=== PATIENT | female | born 1965 | race Caucasian/White ===

== ENCOUNTER 2016-06-24 22:36 | Emergency (ER) | payer OTHER ==
[2016-06-24 23:44] VITALS: RESP 18
[2016-06-24 23:58] LABS: Basophils # (A) 0.1 k/uL (0-0.2); Basophils % (A) 2 %; CHCM 34.3; Eosinophils # (A) 0.2 k/uL (0-0.7); Eosinophils % (A) 3 %; HCT 41.4 % (34.0-46.0); HDW 2.65; HGB 14.1 gm/dL (11.4-16.0); Luc # (Auto) 0.12; Luc % (Auto) 2; Lymphocytes # (A) 2.3 k/uL (1.0-4.8); Lymphocytes % (A) 32 %; MCH 28.9 pg (25.0-35.0); MCV 84.8 fL (80.0-100.0); Mean Platelet Volume 7.4; Monocytes # (A) 0.6 k/uL (0-1.0); Monocytes % (A) 8 %; Neutrophils # (A) 3.8 k/uL (1.3-7.7); Neutrophils % (A) 54 %; RBC 4.88 m/uL (3.80-5.40); RDW 13.3 % (11.5-15.5); WBC 7.1 k/uL (3.8-10.6); WBC (Perox) 6.91
[2016-06-25 00:07] LABS: ALT 33 U/L (9-52); AST 21 U/L (14-36); Alkaline Phosphatase 53 U/L (38-126); Anion Gap 12 mmol/L; Blood Urea Nitrogen 11 mg/dL (7-17); Calcium 9.4 mg/dL (8.4-10.2); Carbon Dioxide 24 mmol/L (22-30); Chloride 103 mmol/L (98-107); Glucose 105 mg/dL (74-99); Magnesium 1.8 mg/dL (1.6-2.3); Non-African American GFR(MDRD) >60 (>60 ml/min/1.73 sqM); Potassium 4.1 mmol/L (3.5-5.1); Sodium 139 mmol/L (137-145); Total Bilirubin 0.6 mg/dL (0.2-1.3); Total Protein 6.9 g/dL (6.3-8.2)
[2016-06-25 00:13] LABS: Partial Thromboplastin Time 23.7 sec (22.0-30.0); Prothrombin Time 10.5 sec (9.0-12.0)
--- NOTE | 2016-06-25 00:19 | XR ---
EXAMINATION TYPE: XR chest 2V DATE OF EXAM: 06/25/2016 12:14 AM COMPARISON: 10/22/2014 HISTORY: Chest pain TECHNIQUE: Frontal and lateral views of the chest are obtained. FINDINGS: Heart and mediastinum are normal. Lungs are clear. Diaphragm is normal. Bony thorax is int act. IMPRESSION: Normal chest. No change.
--- NOTE | 2016-06-25 00:32 | ED ---
General Adult HPI - General Chief complaint: Extremity Injury, Upper Stated complaint: arm pain Time Seen by Provider: 06/24/16 23:45 Source: patient, RN notes reviewed, old records reviewed Mode of arrival: wheelchair Limitations: no limitations - History of Present Illness Initial comments: This is a 51-year-old female here for evaluation. Patient presents today for evaluation of shoulder pain and pain pain to right back. Has not had prior history of similar issues before. Patient has history of high blood pressure, diabetes, obesity.. Patient's pain has been going on for a week with no modifying factors. No recent travel history no sick contacts no cough congestion or shortness of breath - Related Data Home Medications Medication Instructions Recorded Confirmed Escitalopram [Lexapro] 10 mg PO DAILY 10/22/14 06/24/16 Albuterol Inhaler [Ventolin Hfa 1 - 2 puff INHALATION RT-Q6H PRN 06/24/16 Inhaler] amLODIPine [Norvasc] 5 mg PO DAILY 06/24/16 06/24/16 metFORMIN HCL 1,000 mg PO BID 06/24/16 06/24/16 Allergies Allergy/AdvReac Type Severity Reaction Status Date / Time latex AdvReac Rash/Hives Verified 06/24/16 23:05 Review of Systems ROS Statement: Those systems with pertinent positive or pertinent negative responses have been documented in the HPI. ROS Other: All systems not noted in ROS Statement are negative. Past Medical History Past Medical History: No Reported History History of Any Multi-Drug Resistant Organisms: None Reported Additional Past Surgical History / Comment(s): ovarian cyst sx, D & C Past Psychological History: Anxiety Smoking Status: Never smoker Past Alcohol Use History: None Reported Past Drug Use History: None Reported General Exam Limitations: no limitations General appearance: alert, in no apparent distress Head exam: Present: atraumatic, normocephalic, normal inspection Eye exam: Present: normal appearance, PERRL, EOMI. Absent: scleral icterus, conjunctival injection, periorbital swelling ENT exam: Present: normal exam, mucous membranes moist Neck exam: Present: normal inspection. Absent: tenderness, meningismus, lymphadenopathy Respiratory exam: Present: normal lung sounds bilaterally. Absent: respiratory distress, wheezes, rales, rhonchi, stridor Cardiovascular Exam: Present: regular rate, normal rhythm, normal heart sounds. Absent: systolic murmur, diastolic murmur, rubs, gallop, clicks GI/Abdominal exam: Present: soft, normal bowel sounds. Absent: distended, tenderness, guarding, rebound, rigid Extremities exam: Present: normal inspection, full ROM, normal capillary refill. Absent: tenderness, pedal edema, joint swelling, calf tenderness Back exam: Present: normal inspection Neurological exam: Present: alert, oriented X3, CN II-XII intact Psychiatric exam: Present: normal affect, normal mood Skin exam: Present: warm, dry, intact, normal color. Absent: rash Course Vital Signs 06/24/16 06/24/16 06/25/16 22:38 23:43 00:59 Temperature 98.9 F Pulse Rate 84 72 75 Respiratory 20 18 18 Rate Blood Pressure 161/93 135/79 145/79 O2 Sat by Pulse 98 97 98 Oximetry - Reevaluation(s) Reevaluation #1: 06/25/16 00:30 Patient is without significant chest pain, no anterior crushing heaviness, no shortness of breath or diaphoresis EKG Findings - EKG Comments: EKG Findings:: EKG shows normal sinus rhythm of 74, WV 1:30, QRS 78, QTC 444 Medical Decision Making - Medical Decision Making 51 female to ER History of the ER for evaluation. Patient presents for evaluation of shoulder pain. Shoulder pain in nature is worse with movement, worse with pain at pressing her trapezius. No shortness of breath, although patient does admit eating overweight she does get short of breath easily, no diaphoresis and these episodes. No is continuing down arm, no trauma. Chest x- rays negative EKG and troponin are negative, patient discussed at length greater than 15 minutes of questions answered regarding need for further testing for cardiac risk, patient does have increased cardiac risk including diabetes and high blood pressure. Patient understands her history and her risk factors, will follow up with primary care for heart disease and stress test - Lab Data Result diagrams: 06/24/16 23:35 06/24/16 23:35 Lab Results 06/24/16 06/24/16 06/24/16 Range/Units 23:35 23:35 23:35 WBC 7.1 (3.8-10.6) k/uL RBC 4.88 (3.80-5.40) m/uL Hgb 14.1 (11.4-16.0) gm/dL Hct 41.4 (34.0-46.0) % MCV 84.8 (80.0-100.0) fL MCH 28.9 (25.0-35.0) pg MCHC 34.0 (31.0-37.0) g/dL RDW 13.3 (11.5-15.5) % Plt Count 282 (150-450) k/uL Neutrophils % 54 % Lymphocytes % 32 % Monocytes % 8 % Eosinophils % 3 % Basophils % 2 % Neutrophils # 3.8 (1.3-7.7) k/uL Lymphocytes # 2.3 (1.0-4.8) k/uL Monocytes # 0.6 (0-1.0) k/uL Eosinophils # 0.2 (0-0.7) k/uL Basophils # 0.1 (0-0.2) k/uL PT (9.0-12.0) sec INR (<1.1) APTT (22.0-30.0) sec D-Dimer (<0.60) mg/L FEU Sodium 139 (137-145) mmol/L Potassium 4.1 (3.5-5.1) mmol/L Chloride 103 (98-107) mmol/L Carbon Dioxide 24 (22-30) mmol/L Anion Gap 12 mmol/L BUN 11 (7-17) mg/dL Creatinine 0.64 (0.52-1.04) mg/dL Est GFR (MDRD) Af Amer >60 (>60 ml/min/1.73 sqM) Est GFR (MDRD) Non-Af >60 (>60 ml/min/1.73 sqM) Glucose 105 H (74-99) mg/dL Calcium 9.4 (8.4-10.2) mg/dL Magnesium 1.8 (1.6-2.3) mg/dL Total Bilirubin 0.6 (0.2-1.3) mg/dL AST 21 (14-36) U/L ALT 33 (9-52) U/L Alkaline Phosphatase 53 (38-126) U/L Total Creatine Kinase 88 (30-135) U/L CK-MB (CK-2) 0.8 (0.0-2.4) ng/mL CK-MB (CK-2) Rel Index 0.9 Troponin I <0.012 (0.000-0.034) ng/mL Total Protein 6.9 (6.3-8.2) g/dL Albumin 4.1 (3.5-5.0) g/dL Lipase 105 (23-300) U/L 06/24/16 Range/Units 23:35 WBC (3.8-10.6) k/uL RBC (3.80-5.40) m/uL Hgb (11.4-16.0) gm/dL Hct (34.0-46.0) % MCV (80.0-100.0) fL MCH (25.0-35.0) pg MCHC (31.0-37.0) g/dL RDW (11.5-15.5) % Plt Count (150-450) k/uL Neutrophils % % Lymphocytes % % Monocytes % % Eosinophils % % Basophils % % Neutrophils # (1.3-7.7) k/uL Lymphocytes # (1.0-4.8) k/uL Monocytes # (0-1.0) k/uL Eosinophils # (0-0.7) k/uL Basophils # (0-0.2) k/uL PT 10.5 (9.0-12.0) sec INR 1.0 (<1.1) APTT 23.7 (22.0-30.0) sec D-Dimer 0.21 (<0.60) mg/L FEU Sodium (137-145) mmol/L Potassium (3.5-5.1) mmol/L Chloride (98-107) mmol/L Carbon Dioxide (22-30) mmol/L Anion Gap mmol/L BUN (7-17) mg/dL Creatinine (0.52-1.04) mg/dL Est GFR (MDRD) Af Amer (>60 ml/min/1.73 sqM) Est GFR (MDRD) Non-Af (>60 ml/min/1.73 sqM) Glucose (74-99) mg/dL Calcium (8.4-10.2) mg/dL Magnesium (1.6-2.3) mg/dL Total Bilirubin (0.2-1.3) mg/dL AST (14-36) U/L ALT (9-52) U/L Alkaline Phosphatase (38-126) U/L Total Creatine Kinase (30-135) U/L CK-MB (CK-2) (0.0-2.4) ng/mL CK-MB (CK-2) Rel Index Troponin I (0.000-0.034) ng/mL Total Protein (6.3-8.2) g/dL Albumin (3.5-5.0) g/dL Lipase (23-300) U/L - Radiology Data Radiology results: report reviewed (Chest x-ray two-view is negative for acute disease), image reviewed Disposition Clinical Impression: Left shoulder pain Disposition: HOME SELF-CARE Condition: Good Instructions: Shoulder Pain (ED) Referrals: Melinda Leonard III, MD [Primary Care Provider] - 1-2 days
[2016-06-25 00:33] LABS: Creatine Kinase 88 U/L (30-135)
[2016-06-25 00:46] LABS: Creatine Kinase MB 0.8 ng/mL (0.0-2.4); Troponin I <0.012 ng/mL (0.000-0.034)
[2016-06-25 01:20] VITALS: BP 137/77; PULSE 80; TEMP 97.7
== END 2016-06-25 01:20 | disposition home or self-care (01) ==
LOC: EC 22:36
DX: M25.512 Pain in left shoulder (principal); E11.9 Type 2 diabetes mellitus without complications; I10 Essential (primary) hypertension; F41.9 Anxiety disorder, unspecified; E66.9 Obesity, unspecified; Z91.040 Latex allergy status; Z79.84 Long term (current) use of oral hypoglycemic drugs; Z79.899 Other long term (current) drug therapy
CPT/HCPCS: 36415; 71020; 80053; 82550; 82553; 83690; 83735; 84484; 85025; 85379; 85610; 85730; 93005; 99284

== ENCOUNTER → 2016-07-11 | Outpatient (CLI) | payer OTHER ==
--- NOTE | 2016-07-11 12:16 | EST ---
DATE OF SERVICE: 07/11/2016 AGE: 51Y SEX: F HT: 72 WT: 355 lbs. Protocol Nick: X Other: Stage: II Dur. of Exercise: 4:09 *Heart Rate Blood Pressure *Rest: 91 Rest: 145/93 * *Max. Achieved: 148 Maximum BP: 178/89 85% PMHR: 145 100% PMHR: 171 *METS: 5.4 INDICATIONS: Chest pain, hypertension. MEDICATIONS: Mrs. Nixon is a 51-year-old female with history of hypercholesterolemia, hypertension and diabetes being evaluated for symptoms of chest pain and shortness of breath. Baseline EKG showed sinus rhythm with normal WV interval and QRS duration. Blood pressure at rest is 145/93 with pulse rate of 91. Patient walked on the Nick protocol for 4 minutes and 9 seconds, achieving a maximum heart rate of 148 with a blood pressure of 178/89. EKGs taken during and after the exercise did not reveal any changes to suggest ischemia. This test was stopped because patient became fatigued and reached 86% of predicted heart rate. FINAL IMPRESSION: 1. Low exercise capacity. 2. Negative stress test. 3. Patient did not experience any chest pain. 4. No arrhythmias were detected.
--- NOTE | 2016-07-14 10:00 | MM ---
Reason for exam: screening (asymptomatic). History: Patient had first child at age 33. Physical Findings: A clinical breast exam by your physician is recommended on an annual basis and results should be correlated with mammographic findings. MG Screening Mammo w CAD Bilateral CC and MLO view(s) were taken. The breast tissue is heterogeneously dense. This may lower the sensitivity of mammography. There is no discrete abnormality. No significant changes when compared with prior studies. ASSESSMENT: Negative, BI-RAD 1 RECOMMENDATION: Routine screening mammogram of both breasts in 1 year.
== END | disposition home or self-care (01) ==
LOC: RADMAMWWP 09:45
PROVIDERS: ATTEND Family Medicine
DX: Z12.31 Encounter for screening mammogram for malignant neoplasm of breast (principal); I10 Essential (primary) hypertension; E11.9 Type 2 diabetes mellitus without complications
CPT/HCPCS: 93017; G0202

== ENCOUNTER 2018-03-07 15:49 | Observation (INO) | payer OTHER ==
[2018-03-07] MEDS ORDERED: HYDROcodone/APAP 7.5-325MG 1 EACH TAB PO ONE (16:28)
--- NOTE | 2018-03-07 17:00 | XR ---
EXAMINATION TYPE: XR knee complete RT DATE OF EXAM: 03/07/2018 COMPARISON: NONE HISTORY: 52-year-old female pain after twisting injury TECHNIQUE: 3 views FINDINGS: Tricompartmental degenerative spurring. Fragmentation at the tibial tuberosity possibly sequela of ol d Alsen-Schlatter's disease. Intercondylar spurring is noted in the medial compartment. No significa nt knee joint effusion. No acute fracture, subluxation, or dislocation seen. IMPRESSION: Tricompartmental osteoarthrosis. No knee joint effusion or acute osseous abnormality seen.
[2018-03-07] MEDS ORDERED: MORPHINE SULFATE 4 MG/ML SYRINGE IVP STA (17:37)
[2018-03-07] MEDS ORDERED: RX INFO: IV CONTRAST WAS GIVEN 1 EACH MISC MISCELLANE PRN (17:44)
[2018-03-07 18:59] LABS: Blood Urea Nitrogen 11 mg/dL (7-17)
[2018-03-07] MEDS ORDERED: SODIUM CHLORIDE 0.9% 1,000 ML IV ONE (19:37)
--- NOTE | 2018-03-07 20:02 | ED ---
Lower Extremity Injury HPI - General Chief Complaint: Extremity Injury, Lower Stated Complaint: right knee pain Time Seen by Provider: 03/07/18 16:00 Source: patient Mode of arrival: ambulatory Limitations: no limitations - History of Present Illness Initial Comments: This a 52-year-old female past medical history of hypertension diabetes and extensive OA of the knees b/l who presents today for chief complaint of right knee pain. Patient states that she was walking in her yard, when she stepped into a hole dug by her dog. Patient states that she twisted her right knee. She is unsure if there was dislocation. Patient stated that she was able to slowly ambulate to the house following the injury, however the pain was so severe it made her feel as though she was going to pass out. Denies falling hitting her head or injury to any other extremity. Patient denies numbness, tingling, loss sensation of the right knee. Patient denies ability to range at the right knee secondary to pain. Patient denies a coolness or color changes of the right lower extremity. Patient denies any recent fever, chills, shortness of breath, chest pain, back pain, abdominal pain, nausea or vomiting, numbness or tingling, dysuria or hematuria, constipation or diarrhea, headaches or visual changes, or any other complaints. - Related Data Home Medications Medication Instructions Recorded Confirmed Escitalopram [Lexapro] 10 mg PO DAILY 10/22/14 06/24/16 Albuterol Inhaler [Ventolin Hfa 1 - 2 puff INHALATION RT-Q6H PRN 06/24/16 Inhaler] amLODIPine [Norvasc] 5 mg PO DAILY 06/24/16 06/24/16 metFORMIN HCL 1,000 mg PO BID 06/24/16 06/24/16 Allergies Allergy/AdvReac Type Severity Reaction Status Date / Time latex AdvReac Rash/Hives Verified 03/07/18 15:53 Review of Systems ROS Statement: Those systems with pertinent positive or pertinent negative responses have been documented in the HPI. ROS Other: All systems not noted in ROS Statement are negative. Constitutional: Denies: fever, chills Eyes: Denies: eye pain Respiratory: Denies: cough, dyspnea, wheezes, hemoptysis, stridor Cardiovascular: Denies: chest pain, palpitations, dyspnea on exertion Gastrointestinal: Denies: abdominal pain, nausea, vomiting, diarrhea, constipation Genitourinary: Denies: urgency, dysuria Musculoskeletal: Reports: joint swelling, arthralgia. Denies: back pain Skin: Denies: rash, lesions Neurological: Reports: abnormal gait (inability to ambulate). Denies: headache , numbness, paresthesias, confusion Past Medical History Past Medical History: Diabetes Mellitus, Hypertension History of Any Multi-Drug Resistant Organisms: None Reported Additional Past Surgical History / Comment(s): ovarian cyst sx, D & C Past Psychological History: Anxiety Smoking Status: Never smoker Past Alcohol Use History: None Reported Past Drug Use History: None Reported General Exam - General Exam Comments Initial Comments: General: The patient is awake and alert, in no distress, and does not appear acutely ill. Eye: Pupils are equal, round extra-ocular movements are intact. No nystagmus. There is normal conjunctiva bilaterally. No signs of icterus. Ears, nose, mouth and throat: There are moist mucous membranes and no oral lesions. Cardiovascular: There is a regular rate and rhythm. No murmur, rub or gallop is appreciated. Respiratory: Lungs are clear to auscultation, respirations are non-labored, breath sounds are equal. No wheezes, stridor, rales, or rhonchi. Musculoskeletal: Pt unable to active or passively range at the right knee due to pain, no popliteal fossa tenderness. Unable to assess muscle strength testing of the right knee. Pt is able to full range the feet fully with dorsiflexion and plantar flexion, strength 5/5. No evidence of foot drop. Sensation intact of the LE equally b/l. LE pink, warm to palpation equally b/l. DP pulses unequal to palpation +1 on right, +2 on the left. Capillary refill < 2seconds equally b/l. Compartment are soft and compressible of the LE equally b/ l. No noted laxity with anterior or posterior drawer testing-special testing was limited due to patient pain/compliance. Neurological: A&O x 3. CN II-XII intact, There are no obvious motor or sensory deficits. Coordination appears grossly intact. Speech is normal. Skin: Skin is warm and dry and no rashes or lesions are noted. Psychiatric: Cooperative, appropriate mood & affect, normal judgment. Limitations: no limitations Course Vital Signs 0903/07/18 03/07/18 15:51 19:46 21:24 Temperature 97.8 F 97.8 F Pulse Rate 81 85 69 Respiratory 18 18 18 Rate Blood Pressure 136/91 143/84 146/80 O2 Sat by Pulse 97 98 97 Oximetry Medical Decision Making - Medical Decision Making 52yo with cc of right knee concerning for possible dislocation v ligamentous injury. Physical exam limited secondary to pain however no noted laxity.Pt given norco for pain mgmt XR revealed no dislocation or fracture, however severe tricompartmental osteoarthritis. There was a palpable difference in pulses the right DP felt slightly diminished in comparison with the left. Dr. Lang attempted bedside U/S however given pt obesity exam was limited. . Due to possible pulse discrepancy and pt was unsure of dislocation, CTA was obtained. No evidence of aneursym, dissection or injury to the right popliteal artery. I called Dr. Grissom the radiologist reading to confirm the evaluation of the popliteal artery he stated that the vessel was WNL there were no suspicious findings of the popliteal artery and he stated that he had good views of artery on CT. Given no hx confirming definite dislocation, no high mechanism of trauma and (-) CT findings we feel popliteal artery injury in not likely. During CT pt was given double the dose of contrast and pt was given 1,000ml bolus following study. Case discussed with Dr. Lang who evaluated pt in person prior to work up. At this time we feel given pt weight, intractable pain with movement-pt denies pain at rest, bilateral osteoarthritis we feel admission in observation for orthopedic evaluation, PT evaluation, and possible case management. Pt given standing order for pain mgmt, glucose monitoring, DVT ppx, nausea and maintenance fluids. Basic labs obtained, heparin DVT ppx was withheld until plt results from CBC, plt WNL heparin SQ started q8h. Pt transferred to floor in stable condition. - Lab Data Result diagrams: 03/07/18 18:20 Lab Results 03/07/18 Range/Units 18:20 BUN 11 (7-17) mg/dL Creatinine 0.75 (0.52-1.04) mg/dL Est GFR (CKD-EPI)AfAm >90 (>60 ml/min/1.73 sqM) Est GFR (CKD-EPI)NonAf >90 (>60 ml/min/1.73 sqM) Disposition Clinical Impression: Osteoarthritis of knees, bilateral, Knee pain, bilateral, Right knee injury, Inability to ambulate due to knee Disposition: ADMITTED IP TO THIS [facility] Condition: Stable Time of Disposition: 21:36 Decision to Admit Reason: Admit from EC Decision Date: 03/07/18 Decision Time: 21:36
--- NOTE | 2018-03-07 20:24 | CT ---
EXAMINATION TYPE: CT angio lower extremity RT DATE OF EXAM: 03/07/2018 COMPARISON: Radiographs right knee same day HISTORY: 52-year-old female Right knee pain, twisting injury to right knee. Patient reports that she needs bilateral knee replacements. TECHNIQUE: Contiguous axial scanning of the pelvis with bilateral lower extremity runoff performed wi IV Contrast, patient injected with a total of 200 mL of Isovue 370. The initial 100 mL injection d id not trigger appropriately. The patient was reinjected with another 100 mL of contrast. Coronal/sag ittal MIP reconstructions performed. 3-D reconstructions generated on a dedicated independent worksta Endosee. CT DLP: 3356.6 mGycm Automated exposure control for dose reduction was used. FINDINGS: Small fatty umbilical hernia. No dilated small bowel, free fluid, or free air. There is a rounded structure located behind the bladder that seems to have fluid attenuation measurin g up 8.5 x 6.9 cm. Correlation will be needed as to the patient has had prior hysterectomy. Left ovar y appears to be visualized. No pelvic lymphadenopathy seen. The visualized lower abdominal aorta is normal caliber and patent. The right iliac arteries appear pa tent. The right common and superficial femoral arteries as well as the popliteal artery are patent. Normal takeoff of the anterior tibial artery and patent tibial peroneal trunk. The 3 vessels of the leg show progressively faint enhancement likely due to the skin outlining the co ntrast bolus. The peroneal artery is seen down to the mid leg level. Anterior tibial artery is faintl y seen to the ankle. There is at least single vessel runoff into the foot via the posterior tibial ar mark. Degenerative joint space narrowing in the patellofemoral compartment and additional subchondral cysti c change and degenerative change at the proximal tibiofibular joint. No knee joint effusion. On the left, the iliac arteries are patent as is the common femoral and superficial femoral artery. The popliteal artery is patient as well as are the proximal trifurcation vessels. There is progressiv allison diminishing enhancement of the trifurcation vessels likely due to scanning out running the contra st bolus. The peroneal artery is seen to the lower third leg level and both anterior and posterior ti bial arteries are faintly seen to the ankle. Degenerative changes in the patellofemoral compartment with marginal spurring in the medial compartme nt. No knee joint effusion. IMPRESSION: 1. ROUNDED 8.5 CM STRUCTURE LOCATED BEHIND THE BLADDER MAY HAVE FLUID ATTENUATION. THIS REPRESENT THE UTERUS IF THERE IS NO PRIOR HISTORY OF HYSTERECTOMY. IF THERE HAS BEEN PRIOR HYSTERECTOMY, A CYSTIC OVARIAN LESION IS IN THE DIFFERENTIAL. PELVIC ULTRASOUND CLINICALLY INDICATED. 2. PROGRESSIVELY DIMINISHING ENHANCEMENT OF THE BILATERAL TRIFURCATION VESSELS AT THE MID LEG LEVEL L IKELY DUE TO THE SCAN OUTRUNNING THE CONTRAST BOLUS. NO SIGNIFICANT ATHEROSCLEROTIC CHANGES ARE IDENT IFIED. ON THE LEFT, THERE IS AT LEAST SINGLE VESSEL RUNOFF VIA THE POSTERIOR TIBIAL ARTERY WITH THE A NTERIOR TIBIAL ARTERY SEEN TO THE ANKLE. ON THE RIGHT, THERE IS AT LEAST TWO-VESSEL RUNOFF. NO ARTERI AL OCCLUSION IS SUSPECTED. 3. DEGENERATIVE CHANGES AT BOTH KNEES.
[2018-03-07] MEDS ORDERED: ONDANSETRON 4 MG/2 ML VIAL IVP PRN (21:16)
[2018-03-07] MEDS ORDERED: NALOXONE 0.4 MG/ML 1 ML VIAL IV PRN (21:16)
[2018-03-07] MEDS ORDERED: MORPHINE SULFATE 2 MG/ML SYRINGE IV PRN (21:16)
[2018-03-07] MEDS ORDERED: IBUPROFEN 400 MG TAB PO PRN (21:16)
[2018-03-07] MEDS ORDERED: ACETAMINOPHEN TAB 325 MG TAB PO PRN (21:16)
[2018-03-07 21:41] LABS: Basophils # (A) 0.1 k/uL (0-0.2); Basophils % (A) 1 %; Eosinophils # (A) 0.1 k/uL (0-0.7); Eosinophils % (A) 1 %; HCT 47.2 % (34.0-46.0); HGB 15.8 gm/dL (11.4-16.0); Lymphocytes # (A) 1.8 k/uL (1.0-4.8); Lymphocytes % (A) 20 %; MCH 27.8 pg (25.0-35.0); MCHC 33.4 g/dL (31.0-37.0); MCV 83.3 fL (80.0-100.0); Mean Platelet Volume 7.8; Monocytes # (A) 0.6 k/uL (0-1.0); Monocytes % (A) 7 %; Neutrophils # (A) 6.2 k/uL (1.3-7.7); Neutrophils % (A) 70 %; Platelet Count 330 k/uL (150-450); RBC 5.67 m/uL (3.80-5.40); RDW 13.7 % (11.5-15.5); WBC 8.9 k/uL (3.8-10.6)
[2018-03-07 21:45] LABS: ALT 22 U/L (9-52); AST 21 U/L (14-36); Alkaline Phosphatase 51 U/L (38-126); Anion Gap 13 mmol/L; Calcium 9.6 mg/dL (8.4-10.2); Carbon Dioxide 20 mmol/L (22-30); Chloride 105 mmol/L (98-107); Glucose 126 mg/dL (74-99); Potassium 4.4 mmol/L (3.5-5.1); Sodium 138 mmol/L (137-145); Total Bilirubin 0.4 mg/dL (0.2-1.3); Total Protein 7.1 g/dL (6.3-8.2)
[2018-03-07 21:46] LABS: INR 1.1 (<1.2); Prothrombin Time 10.7 sec (9.0-12.0)
[2018-03-07 22:11] LABS: Glucose,Whole Blood 133 mg/dL (75-99)
[2018-03-07 22:41] VITALS: BMI 50.2
[2018-03-07] MEDS: SODIUM CHLORIDE 0.9% 1,000 ML IV SCH (22:55)
[2018-03-07] MEDS: HYDROcodone/APAP 5-325MG 1 EACH TAB PO PRN (23:35)
[2018-03-07] MEDS: HEPARIN SODIUM,PORCINE 5,000 UNIT/ML 1 ML VIAL SQ SCH (23:36)
[2018-03-08] MEDS: HYDROcodone/APAP 5-325MG 1 EACH TAB PO PRN ×3 (04:52→22:51)
[2018-03-08 07:37] LABS: Glucose,Whole Blood 128 mg/dL (75-99)
[2018-03-08] MEDS: HEPARIN SODIUM,PORCINE 5,000 UNIT/ML 1 ML VIAL SQ SCH ×3 (08:11→23:27)
[2018-03-08] MEDS: INSULIN ASPART 100 UNIT/ML 1 ML 10 ML VIAL SQ SCH ×4 (08:17→21:42)
[2018-03-08] MEDS ORDERED: SPIRONOLACTONE 25 MG TAB PO SCH (09:00)
[2018-03-08] MEDS ORDERED: EMPAGLIFLOZIN PO SCH (09:00)
[2018-03-08] MEDS ORDERED: ESCITALOPRAM 10 MG TAB PO SCH (09:00)
[2018-03-08] MEDS ORDERED: amLODIPine 5 MG TAB PO SCH (09:00)
[2018-03-08] MEDS ORDERED: JANUMET PO SCH (09:00)
[2018-03-08] MEDS ORDERED: LINAGLIPTIN 5 MG TABLET PO SCH (09:00)
[2018-03-08] MEDS: JARDIANCE 10MG PO SCH (09:41)
[2018-03-08] MEDS: SPIRONOLACTONE 25 MG TAB PO SCH (09:42)
[2018-03-08] MEDS: amLODIPine 5 MG TAB PO SCH (09:43)
[2018-03-08] MEDS: ESCITALOPRAM 10 MG TAB PO SCH (09:43)
[2018-03-08] MEDS: SODIUM CHLORIDE 0.9% 1,000 ML IV SCH (09:45)
[2018-03-08 11:45] LABS: Glucose,Whole Blood 115 mg/dL (75-99)
--- NOTE | 2018-03-08 14:17 | P.HPIM ---
History of Present Illness H&P Date: 03/08/18 Chief Complaint: Right knee pain Patient is a 52-year-old female with a known history of hypertension, diabetes type 2 [id number] and osteoarthritis of the bilateral knees came to ER or come with complaints of worsening right knee pain. Patient states that C stepdown to a hole dug by her dog. Patient has been having right knee issues for several years. Patient wants to wait until her case go to college therefore go for any surgery. Patient did have a arthroscopy done about [address] Lambert and was told that she has osteoarthritis. She was able to ambulate slowly at home but currently the pain is so severe and was not to ambulate which made her to come to emergency room. Otherwise denied any complaints of chest pain or shortness of breath. No nausea vomiting or abdominal pain. Denied any lower extremities weakness. No numbness or tingling. No recent travel or sick contacts. No headache or dizziness lightheadedness. No dysuria or hematuria. No constipation. Right knee x-ray showed tricompartmental osteoarthrosis. No joint effusion or acute osseous abnormalities seen. CTA of the lower extremities showed rounded 8.5 cm located behind the bladder may have fluid attenuation. This represents the uterus. There is no prior history of hysterectomy. If there has been prior history of hysterectomy is cystic ovarian lesion is in the differential. Awake ultrasound as clinically indicated. Progressively diminishing enhancement of the bilateral trifurcation vessel at the mid leg level likely due to the scan out RUNNING THE CONTRAST BOLUS. Degenerative changes at both knees. Review of Systems Constitutional: Patient denies any fever or chills . No generalized weakness or weight loss. Abdomen: Patient denied nausea vomiting and diarrhea and abdominal pain. Cardiovascular: Patient denies any chest pain or short of breath no palpitations. Respiratory: patient denied any cough is from production. No shortness of breath Neurologic: Patient denied any numbness or tingling headache. Musculoskeletal: Patient denies any complaints of joint swelling or deformity. Right knee pain and decreased range of motion and difficulty walking Skin: Negative Psychiatric: Negative Endocrine: No heat or cold intolerance. No recent weight gain. Genitourinary: No dysuria or hematuria. All other 14 point ROS negative except the above Past Medical History Past Medical History: Diabetes Mellitus, Hypertension History of Any Multi-Drug Resistant Organisms: None Reported Additional Past Surgical History / Comment(s): ovarian cyst sx, D & C Past Anesthesia/Blood Transfusion Reactions: No Reported Reaction Past Psychological History: Anxiety Smoking Status: Never smoker Past Alcohol Use History: None Reported Past Drug Use History: None Reported - Past Family History Mother Family Medical History: Coronary Artery Disease (CAD), Diabetes Mellitus, Hypertension Father Family Medical History: Coronary Artery Disease (CAD), Diabetes Mellitus, Renal Disease Brother(s) Family Medical History: CVA/TIA Medications and Allergies Home Medications Medication Instructions Recorded Confirmed Type Escitalopram [Lexapro] 10 mg PO DAILY 10/22/14 03/08/18 History amLODIPine [Norvasc] 5 mg PO DAILY 06/24/16 03/08/18 History Empagliflozin [Jardiance] 10 mg PO DAILY 03/08/18 03/08/18 History Spironolactone 100 mg PO DAILY 03/08/18 03/08/18 History sitaGLIPtin PHOS/metFORMIN HCL 1 tab PO BID 03/08/18 03/08/18 History [Janumet 50-1,000 mg Tablet] Allergies Allergy/AdvReac Type Severity Reaction Status Date / Time latex AdvReac Rash/Hives Verified 03/08/18 08:37 Physical Exam Vitals: Vital Signs Temp Pulse Pulse Resp BP BP Pulse Ox 03/08/18 07:00 97.8 F 69 16 114/78 98 03/08/18 03:07 72 18 03/08/18 02:17 98.3 F 72 18 107/73 94 L 03/07/18 21:41 98.3 F 72 18 137/96 98 03/07/18 21:24 97.8 F 69 18 146/80 97 03/07/18 19:46 85 18 143/84 98 03/07/18 15:51 97.8 F 81 18 136/91 97 Intake and Output 03/07/18 03/08/18 03/08/18 22:59 06:59 14:59 Intake Total 118 Balance 118 Intake: Oral 118 Other: Voiding Method Bedpan Weight 158.7 kg PHYSICAL EXAMINATION: Patient is lying in the bed comfortably, no acute distress, awake alert and oriented. Morbidly obese. HEENT: Normocephalic. Neck is supple. Pupils reactive. Nostrils clear. Oral cavity is moist. Ears reveal no drainage. Neck reveals no JVD, carotid bruits, or thyromegaly. CHEST EXAMINATION: Trachea is central. Symmetrical expansion. Bibasilar diminished air entry. Lung love clear to auscultation and percussion. CARDIAC: Normal S1, S2 with no gallops. No murmurs ABDOMEN: Soft. Bowel sounds normal. No organomegaly. No abdominal bruits. Extremities: reveal no edema. No clubbing or cyanosis Neurologically awake, alert, oriented x3 with well-coordinated movements. No focal deficits noted Skin: No rash or skin lesions. Psychiatric: Coperative. Nonsuicidal Musculoskeletal: No joint swelling or deformity. Right knee stabilized. Decreased range of motion and pain.. Results CBC & Chem 7: 03/07/18 18:20 03/07/18 18:20 Labs: Abnormal Lab Results - Last 24 Hours (Table) 03/07/18 03/07/18 03/07/18 Range/Units 18:20 18:20 22:09 RBC 5.67 H (3.80-5.40) m/uL Hct 47.2 H (34.0-46.0) % Carbon Dioxide 20 L (22-30) mmol/L Glucose 126 H (74-99) mg/dL POC Glucose (mg/dL) 133 H (75-99) mg/dL 03/08/18 Range/Units 07:35 RBC (3.80-5.40) m/uL Hct (34.0-46.0) % Carbon Dioxide (22-30) mmol/L Glucose (74-99) mg/dL POC Glucose (mg/dL) 128 H (75-99) mg/dL Thrombosis Risk Factor Assmnt - DVT/VTE Prophylaxis DVT/VTE Prophylaxis: Pharmacologic Prophylaxis ordered - Choose All That Apply Any of the Below Risk Factors Present?: Yes Each Factor Represents 1 point: Age 41-60 years, History of:, Obesity (BMI >25) Other Risk Factors: No Thrombosis Risk Factor Assessment Total Risk Factor Score: 3 Thrombosis Risk Factor Assessment Level: Moderate Risk Assessment and Plan Assessment: Intractable right knee pain worsened when stepped down to into the hole Bilateral knees osteoarthritis Hypertension Diabetes type 2 [id number] Depression Years history of arthroscopy of the right knee about 8 years back Morbid obesity with BMI 50.2 DVT prophylaxis Plan: Patient be continued on pain medication the form of [place]. Right knee stabilizing now. We will continue the home blood pressure medications and insulin sliding scale. Orthopedic surgery was consulted for further evaluation. Continue to follow closely and further recommendations based on the clinical course. Time with Patient: Greater than 30
[2018-03-08 17:05] LABS: Glucose,Whole Blood 117 mg/dL (75-99)
[2018-03-08] MEDS: JANUMET PO SCH (18:27)
[2018-03-08 21:32] LABS: Glucose,Whole Blood 151 mg/dL (75-99)
[2018-03-09 06:40] LABS: Glucose,Whole Blood 112 mg/dL (75-99)
[2018-03-09] MEDS: HYDROcodone/APAP 5-325MG 1 EACH TAB PO PRN ×3 (06:49→19:00)
[2018-03-09] MEDS: SPIRONOLACTONE 25 MG TAB PO SCH (08:29)
[2018-03-09] MEDS: JANUMET PO SCH ×2 (08:29→17:54)
[2018-03-09] MEDS: JARDIANCE 10MG PO SCH (08:29)
[2018-03-09] MEDS: HEPARIN SODIUM,PORCINE 5,000 UNIT/ML 1 ML VIAL SQ SCH ×2 (08:30→19:00)
[2018-03-09] MEDS: amLODIPine 5 MG TAB PO SCH (08:30)
[2018-03-09] MEDS: ESCITALOPRAM 10 MG TAB PO SCH (08:30)
[2018-03-09] MEDS: INSULIN ASPART 100 UNIT/ML 1 ML 10 ML VIAL SQ SCH ×4 (09:14→20:50)
--- NOTE | 2018-03-09 10:06 | P.CNOR ---
History of Present Illness - [facility] Consult date: 03/09/18 Requesting physician: Uday Son Consult reason: joint pain History of present illness: patient is a 52-year-old female seen at bedside this morning in consultation for right knee pain. She presented to the emergency department on February after stepping in a hole on her yard. She describes a hyperextension- type injury. She has known history of osteoarthritis of both knees. She has been seen by Dr. Lambert in the past approximately 8 years ago where she had a knee scope. She states she was told by him that she needed a knee replacement. She has held off on having any further intervention done and has not seen anybody in the past 8 years. She states her pain is improved today. She does have pain with straightening her knee. She states she has been out of bed to the bathroom. She has been in a knee immobilizer. She denies fever or chills. She also denies numbness, tingling, calf pain, chest pain or shortness of breath. Past Medical History Past Medical History: Diabetes Mellitus, Hypertension History of Any Multi-Drug Resistant Organisms: None Reported Additional Past Surgical History / Comment(s): ovarian cyst sx, D & C Past Anesthesia/Blood Transfusion Reactions: No Reported Reaction Past Psychological History: Anxiety Smoking Status: Never smoker Past Alcohol Use History: None Reported Past Drug Use History: None Reported - Past Family History Mother Family Medical History: Coronary Artery Disease (CAD), Diabetes Mellitus, Hypertension Father Family Medical History: Coronary Artery Disease (CAD), Diabetes Mellitus, Renal Disease Brother(s) Family Medical History: CVA/TIA Medications and Allergies Home Medications Medication Instructions Recorded Confirmed Type Escitalopram [Lexapro] 10 mg PO DAILY 10/22/14 03/08/18 History amLODIPine [Norvasc] 5 mg PO DAILY 06/24/16 03/08/18 History Empagliflozin [Jardiance] 10 mg PO DAILY 03/08/18 03/08/18 History Spironolactone 100 mg PO DAILY 03/08/18 03/08/18 History sitaGLIPtin PHOS/metFORMIN HCL 1 tab PO BID 03/08/18 03/08/18 History [Janumet 50-1,000 mg Tablet] Allergies Allergy/AdvReac Type Severity Reaction Status Date / Time latex AdvReac Rash/Hives Verified 03/08/18 08:37 Physical Examination Inspection of the right lower extremity shows no deformity. There is no erythema or effusion. There is no ecchymoses. The knee is not hot to touch. The knee is minimally tender to touch. She has pain with knee extension and is comfortable at 5. Flexion to 45 reproduces pain. The knee appears ligamentously stable. Exam is guarded and difficult to assess fully. Calf is soft and nontender. 2+ dorsalis pedis pulse and less than 2 second capillary refill is present. Results x-rays the right knee show tricompartmental advanced degenerative joint disease osteophyte is. There is no fractures, lesions or dislocation. there is prominent tibial tuberosity with evidence of chronic Anibal-Schlatter. - Labs Labs: Abnormal Lab Results - Last 24 Hours (Table) 03/08/18 03/08/18 03/08/18 Range/Units 11:44 17:03 21:30 POC Glucose (mg/dL) 115 H 117 H 151 H (75-99) mg/dL 03/09/18 Range/Units 06:38 POC Glucose (mg/dL) 112 H (75-99) mg/dL H & H 03/07/18 Range/Units 18:20 Hgb 15.8 (11.4-16.0) gm/dL Hct 47.2 H (34.0-46.0) % Coagulation 03/07/18 Range/Units 18:20 INR 1.1 (<1.2) Result Diagrams: 03/07/18 18:20 03/07/18 18:20 - Diagnostic results Knee x-ray: report reviewed, image reviewed Assessment and Plan (1) Right knee injury Narrative/Plan: This patient has been reviewed with Dr. Son. He has reviewed her x-rays. She does not require immediate surgical intervention. He has recommended continued conservative care including pain management, anti-inflammatory, ice, rest along with utilizing a knee immobilizer and touchdown weightbearing as tolerated with walker or crutches. She may follow up in office in 1 week for review and further recommendations. Current Visit: Yes Status: Acute Code(s): S89.91XA - UNSPECIFIED INJURY OF RIGHT LOWER LEG, INITIAL ENCOUNTER SNOMED Code(s): 828001758 Time with Patient: Less than 30
[2018-03-09 11:46] LABS: Glucose,Whole Blood 110 mg/dL (75-99)
[2018-03-09 16:57] LABS: Glucose,Whole Blood 115 mg/dL (75-99)
[2018-03-09] MEDS ORDERED: metFORMIN 500 MG TAB PO SCH (17:30)
[2018-03-09 19:54] LABS: Glucose,Whole Blood 143 mg/dL (75-99)
--- NOTE | 2018-03-09 21:22 | P.PN ---
Subjective Patient is a 52-year-old female with a known history of hypertension, diabetes type 2 [id number] and osteoarthritis of the bilateral knees came to ER or come with complaints of worsening right knee pain. Patient states that she stepped down to a hole dug by her dog. Patient has been having right knee issues for several years. Patient wants to wait until her case go to college therefore go for any surgery. Patient did have a arthroscopy done about [address] Lambert and was told that she has osteoarthritis. She was able to ambulate slowly at home but currently the pain is so severe and was not to ambulate which made her to come to emergency room. Otherwise denied any complaints of chest pain or shortness of breath. No nausea vomiting or abdominal pain. Denied any lower extremities weakness. No numbness or tingling. Right knee x-ray showed tricompartmental osteoarthrosis. No joint effusion or acute osseous abnormalities seen. CTA of the lower extremities showed rounded 8.5 cm located behind the bladder may have fluid attenuation. This represents the uterus if there is no prior history of hysterectomy. but If there has been prior history of hysterectomy then cystic ovarian lesion is in the differential. pelvic ultrasound as clinically indicated. Progressively diminishing enhancement of the bilateral trifurcation vessel at the mid leg level likely due to the scan out RUNNING THE CONTRAST BOLUS. Degenerative changes at both knees. Patient has been evaluated by Dr. Son from orthopedic team, and he recommended no immediate surgery indicated and to continue with conservative care including pain management anti-inflammatory , ice, rest along with utilizing a knee immobilizer and touch down weightbearing as tolerated with walker or crutches however pt did not feel ready to be discharge , pt has pain and unability to raise her right leg or bend her knee following her knee injury , and although medical staff provided appointment with pcp tomorrow and with her orthopedic and Zeke BROWN in one week and 2 days respectively but she state she could not function and she might loose her job. discussed the case with STEPHANIE Alanis and he referred will not be available till next week to see the pt on the office . a second opinion is discussed and suggested 2 surgeons. is consulted. discussed with the pt and she agrees to stay in the hospital for a second opinion. and i think this second consult is necessary in view of pt type of injury. pt also states he has uterus, and her last menstural period was about one month ago. but states she has h/o ovarian cyst , so pelvic US is recommended and pt agrees, which is still pending Objective - Vital Signs Vital signs: Vital Signs Temp 97.1 F L 03/09/18 14:48 Pulse 74 03/09/18 14:48 Resp 16 03/09/18 14:48 BP 130/77 03/09/18 14:48 Pulse Ox 94 L 03/09/18 14:48 Intake & Output 03/09/18 03/09/18 03/10/18 06:59 18:59 06:59 Intake Total 1360 882 Balance 1360 882 Intake: Intake, IV Titration 280 Amount Sodium Chloride 0.9% 1, 280 000 ml @ 20 mls/hr IV . Q24H [facility], 1928–1983 Rx#:[id number] Oral 1080 882 Other: Voiding Method Toilet # Voids 4 3 # Bowel Movements 1 - Exam Physical exam GENERAL: The patient is alert and oriented x3, not in any acute distress. Well developed, well nourished. HEENT: Pupils are round and equally reacting to light. EOMI. No scleral icterus. No conjunctival pallor. Normocephalic, atraumatic. No pharyngeal erythema. No thyromegaly. CARDIOVASCULAR: S1 and S2 present. No murmurs, rubs, or gallops. PULMONARY: Chest is clear to auscultation, no wheezing or crackles. ABDOMEN: Soft, nontender, nondistended, normoactive bowel sounds. No palpable organomegaly. MUSCULOSKELETAL: No joint swelling or deformity. EXTREMITIES: No cyanosis, clubbing, or pedal edema. -she could not bend her right knee actively however it can be flexed passively. pt raise her right leg only minimally . she has pain on the front of upper tibia at tubresity area when raised her leg NEUROLOGICAL: Gross neurological examination did not reveal any focal deficits. SKIN: No rashes. - Labs CBC & Chem 7: 03/07/18 18:20 03/07/18 18:20 Labs: Abnormal Lab Results - Last 24 Hours (Table) 03/08/18 03/09/18 03/09/18 Range/Units 21:30 06:38 11:44 POC Glucose (mg/dL) 151 H 112 H 110 H (75-99) mg/dL 03/09/18 03/09/18 Range/Units 16:55 19:51 POC Glucose (mg/dL) 115 H 143 H (75-99) mg/dL Assessment and Plan Assessment: right knee injury secondary to trauma h/o B/L knee osteoarthritis , pt was thinking of knee replacement soon as well for her OA possible ovarian cyst (on CT ) h/o Ovarian cyst. rule out recurrence Plan: this is pleasant 52 yo F who presents with right knee inj. continue with same treatment and symptomatic treatment , resume home medication. reconsult orthopedic for a second opinion upon pt request and situation . pelvic US To rule out ovarian cyst. GI and DVT prophylaxis. further recommendation is based upon the clinical course of the pt DVT prophylaxis.: sc heparin GI prophylaxis: pepcid pt states to me she does not want to go to [facility] but she agrees to [facility] prognosis is guarded
[2018-03-09 22:59] LABS: Hemoglobin A1C 7.1 % (4.0-6.0)
--- NOTE | 2018-03-09 23:47 | US ---
EXAMINATION TYPE: US pelvis complete transvag DATE OF EXAM: 03/09/2018 COMPARISON: 09/19/[address] 03/07/2013 CLINICAL HISTORY: 52-year-old female ovarian cyst. Ovarian cyst f/u to ct scan. TECHNIQUE: Transabdominal sonographic images of the pelvis were acquired. Transvaginal sonographic i mages were medically necessary to better assess the following anatomy: The uterus and ovaries. FINDINGS: EXAM MEASUREMENTS: Uterus: 8.1 x 6.2 x 6.9 cm Endometrial Stripe: 1.1 cm Right Ovary: 3.2 x 2.2 x 2.4 cm 1. Uterus: Retroverted wnl. Cervical nabothian cysts measuring up to 1.2 cm. 2. Endometrium: Appears wnl. 3. Right Ovary: Follicles seen . Previously 3.9 cm right ovarian cystic lesion seen in 2010 has reso lved. 4. Left Ovary: Obscured by overlying bowel gas 5. Bilateral Adnexa: wnl 6. Posterior cul-de-sac: wnl IMPRESSION: 1. Normal follicular change in the right ovary. The previously seen complex cyst in 2010 has resolved . 2. Left ovary could not be visualized. Normal retroverted uterus.
[2018-03-10] MEDS: HEPARIN SODIUM,PORCINE 5,000 UNIT/ML 1 ML VIAL SQ SCH ×3 (00:12→16:05)
[2018-03-10 07:04] LABS: Glucose,Whole Blood 119 mg/dL (75-99)
[2018-03-10 07:41] VITALS: RESP 12; TEMP 98.2
[2018-03-10] MEDS: INSULIN ASPART 100 UNIT/ML 1 ML 10 ML VIAL SQ SCH ×2 (08:12→12:56)
--- NOTE | 2018-03-10 08:58 | P.CNOR ---
History of Present Illness - HPI Consult date: 03/10/18 History of present illness: This is a 52-year-old female who is admitted for right knee pain. Patient states that her knee pain flared up after stepping in a hole in her yard. Patient states that she has seen Dr. Lambert 8 years ago for her right knee pain and was told that she needed a total knee replacement. Patient states that she has a follow up appointment with Dr. Lambert this week for reevaluation. Patient denies any new complaints today. Patient denies any fever/chills, numbness, weakness, tingling, abdominal pain, shortness of breath or chest pain. Review of Systems See HPI. Past Medical History Past Medical History: Diabetes Mellitus, Hypertension History of Any Multi-Drug Resistant Organisms: None Reported Additional Past Surgical History / Comment(s): ovarian cyst sx, D & C Past Anesthesia/Blood Transfusion Reactions: No Reported Reaction Past Psychological History: Anxiety Smoking Status: Never smoker Past Alcohol Use History: None Reported Past Drug Use History: None Reported - Past Family History Mother Family Medical History: Coronary Artery Disease (CAD), Diabetes Mellitus, Hypertension Father Family Medical History: Coronary Artery Disease (CAD), Diabetes Mellitus, Renal Disease Brother(s) Family Medical History: CVA/TIA Medications and Allergies Home Medications Medication Instructions Recorded Confirmed Type Escitalopram [Lexapro] 10 mg PO DAILY 10/22/14 03/08/18 History amLODIPine [Norvasc] 5 mg PO DAILY 06/24/16 03/08/18 History Empagliflozin [Jardiance] 10 mg PO DAILY 03/08/18 03/08/18 History Spironolactone 100 mg PO DAILY 03/08/18 03/08/18 History sitaGLIPtin PHOS/metFORMIN HCL 1 tab PO BID 03/08/18 03/08/18 History [Janumet 50-1,000 mg Tablet] Allergies Allergy/AdvReac Type Severity Reaction Status Date / Time latex AdvReac Rash/Hives Verified 03/08/18 08:37 Physical Examination On exam patient is lying comfortably in bed in no acute distress. Patient is alert and oriented 3. There is no effusion, erythema or ecchymosis. Patient has limited range of motion due to pain. Calf is soft and nontender to palpation. Sensation intact. Neurovascular status and circulatory status are intact. Results X-rays of the right knee show moderate osteoarthritic changes in all compartments. There is no fracture or dislocation. - Labs Labs: Abnormal Lab Results - Last 24 Hours (Table) 03/07/18 03/09/18 03/09/18 Range/Units 18:20 11:44 16:55 POC Glucose (mg/dL) 110 H 115 H (75-99) mg/dL Hemoglobin A1c 7.1 H (4.0-6.0) % 03/09/18 03/10/18 Range/Units 19:51 07:03 POC Glucose (mg/dL) 143 H 119 H (75-99) mg/dL Hemoglobin A1c (4.0-6.0) % H & H 03/07/18 Range/Units 18:20 Hgb 15.8 (11.4-16.0) gm/dL Hct 47.2 H (34.0-46.0) % Coagulation 03/07/18 Range/Units 18:20 INR 1.1 (<1.2) Result Diagrams: 03/07/18 18:20 03/07/18 18:20 Assessment and Plan (1) Right knee pain Current Visit: Yes Status: Acute Code(s): M25.561 - PAIN IN RIGHT KNEE SNOMED Code(s): 54639607 (2) Osteoarthritis of right knee Current Visit: Yes Status: Acute Code(s): M17.11 - UNILATERAL PRIMARY OSTEOARTHRITIS, RIGHT KNEE SNOMED Code(s): 814030102870327 Plan: #1. There is no surgical intervention planned. #2. Continue rest, ice, compression and elevation of the right knee. #3. Patient states that she plans to follow up with Dr. Lambert upon discharge from the hospital. Patient states that she has been a patient of Dr. Lambert's in the past.
--- NOTE | 2018-03-10 09:50 | P.DS ---
Providers Date of admission: 03/07/18 21:33 Attending physician: Maximiliano Payne MD Consults: 03/08/18 09:34 Consult Physician Routine Consulting Provider: Uday Son Consult Reason/Comments: intractable knee pain Do you want consulting provider notified?: Yes 03/09/18 15:01 Consult Physician Routine Consulting Provider: Blu Goodwin Consult Reason/Comments: knee pain, second opinion Do you want consulting provider notified?: Yes Primary care physician: [facility] Course: Patient is a 52-year-old female with a known history of hypertension, diabetes type 2 raw-[id number] and osteoarthritis of the bilateral knees came to ER or come with complaints of worsening right knee pain. Patient states that she stepped down to a hole dug by her dog. Patient has been having right knee issues for several years. Patient wants to wait until her case go to college therefore go for any surgery. Patient did have a arthroscopy done about [address] Lambert and was told that she has osteoarthritis. She was able to ambulate slowly at home but currently the pain is so severe and was not to ambulate which made her to come to emergency room. Otherwise denied any complaints of chest pain or shortness of breath. No nausea vomiting or abdominal pain. Denied any lower extremities weakness. No numbness or tingling. Right knee x-ray showed tricompartmental osteoarthrosis. No joint effusion or acute osseous abnormalities seen. CTA of the lower extremities showed rounded 8.5 cm located behind the bladder may have fluid attenuation. This represents the uterus if there is no prior history of hysterectomy. but If there has been prior history of hysterectomy then cystic ovarian lesion is in the differential. pelvic ultrasound as clinically indicated.Progressively diminishing enhancement of the bilateral trifurcation vessel at the mid leg level likely due to the scan out RUNNING THE CONTRAST BOLUS. Degenerative changes at both knees. Patient has been evaluated by Dr. Son from orthopedic team, and he recommended no immediate surgery indicated and to continue with conservative care including pain management anti-inflammatory , ice, rest along with utilizing a knee immobilizer and touch down weightbearing as tolerated with walker or crutches. Patient wanted a second opinion and she is been evaluated by Dr. Christa betancourt who saw her today prior to discharge, and the recommended no immediate surgical intervention now and referred her to Dr. Lambert her orthopedic as an outpatient as she has a told she needs total knee replacement anyway as per patient orthopedic team notes. Patient was happy and satisfied with this plan and stated she already called Dr. Lambert office and made an appointment tomorrow at 12:45 pm that she has a contact information and her sister will take her to there. Also patient told me she talked to her principle and she has at least 30 days off sick leave which she can use that and hopefully her problem will be solved before the end of sick leave There was suspicion of ovarian cysts, especially patient has history of ovarian cyst. Pelvic/Transvaginal ultrasound was ordered which showed normal follicular changes in the right ovary, previously seen complex cyst in 2010 has resolved. And left ovary could not be visualized because of gas. With normal retroverted sutures the patient was informed with the results that she was happy with. Patient denies chest pain. No dyspnea. No change in urine or bowel habits. No vaginal discharge or bleeding. No fever patient was cleared by orthopedic team for discharge Problems and management plan was discussed with the patient and she verbalized understanding and acceptance Patient was found stable and can be discharged home however she needs follow-up as an outpatient with which patient agrees physical exam Gen.: Patient alert awake and oriented X 3, NOT IN DISTRESS CVS: s1-s2, RRR, no murmur CHEST:bilateral CTA, no wheezing or crepitation Abdomen: Soft, no tenderness, no distention, positive bowel sounds Extremities: No leg edema or induration -Right knee limited active movement secondary to injury with no swelling or erythema or open wounds and there is no discharge. minimal pain Time spent more than 35 minutes Patient Condition at Discharge: Good Plan - Discharge Summary Discharge Rx Participant: Yes New Discharge Prescriptions: No Action Escitalopram [Lexapro] 10 mg PO DAILY amLODIPine [Norvasc] 5 mg PO DAILY sitaGLIPtin PHOS/metFORMIN HCL [Janumet 50-1,000 mg Tablet] 1 tab PO BID Empagliflozin [Jardiance] 10 mg PO DAILY Spironolactone 100 mg PO DAILY Discharge Medication List Escitalopram [Lexapro] 10 mg PO DAILY 10/22/14 [History] amLODIPine [Norvasc] 5 mg PO DAILY 06/24/16 [History] Empagliflozin [Jardiance] 10 mg PO DAILY 03/08/18 [History] Spironolactone 100 mg PO DAILY 03/08/18 [History] sitaGLIPtin PHOS/metFORMIN HCL [Janumet 50-1,000 mg Tablet] 1 tab PO BID [History] Follow up Appointment(s)/Referral(s): Tracy Elliott NPC [REFERRING] - 03/10/18 12:30 pm Uday Son MD [STAFF PHYSICIAN] - 03/11/18 9:30 am Activity/Diet/Wound Care/Special Instructions: Activity: limited till you see your doctor, Weight bear as tolerated with knee immobilizer on (we recommend utilizing a knee immobilizer and touch down weightbearing as tolerated with walker or crutches) Diet: Diabetic 18 kcal per day Discharge Disposition: HOME SELF-CARE
[2018-03-10] MEDS: SODIUM CHLORIDE 0.9% 1,000 ML IV SCH (10:25)
[2018-03-10] MEDS: JARDIANCE 10MG PO SCH (10:26)
[2018-03-10] MEDS: JANUMET PO SCH (10:27)
[2018-03-10] MEDS: SPIRONOLACTONE 25 MG TAB PO SCH (10:28)
[2018-03-10] MEDS: ESCITALOPRAM 10 MG TAB PO SCH (10:28)
[2018-03-10] MEDS: amLODIPine 5 MG TAB PO SCH (10:28)
[2018-03-10] MEDS: HYDROcodone/APAP 5-325MG 1 EACH TAB PO PRN (10:36)
[2018-03-10 12:37] LABS: Glucose,Whole Blood 114 mg/dL (75-99)
[2018-03-10 15:36] VITALS: BP 121/87; PULSE 92
== END 2018-03-10 17:32 | disposition home or self-care (01) ==
LOC: EC 15:49 → 3SUR 21:33
PROVIDERS: ADMIT Internal Medicine; ATTEND Internal Medicine
DX: S89.91XA Unspecified injury of right lower leg, initial encounter (principal); M17.0 Bilateral primary osteoarthritis of knee; I10 Essential (primary) hypertension; E11.9 Type 2 diabetes mellitus without complications; F41.9 Anxiety disorder, unspecified; E66.01 Morbid (severe) obesity due to excess calories; Z68.43 Body mass index [BMI] 50.0-59.9, adult; F32.9 Major depressive disorder, single episode, unspecified; Z79.899 Other long term (current) drug therapy; Z79.84 Long term (current) use of oral hypoglycemic drugs; Z91.040 Latex allergy status; Z87.42 Personal history of other diseases of the female genital tract; Z83.3 Family history of diabetes mellitus; Z82.49 Family history of ischemic heart disease and other diseases of the circulatory system; Z82.3 Family history of stroke; Z84.1 Family history of disorders of kidney and ureter; X50.1XXA Overexertion from prolonged static or awkward postures, initial encounter; Y92.007 Garden or yard of unspecified non-institutional (private) residence as the place of occurrence of the external cause
CPT/HCPCS: 96372 ×3; 96360; 99285; 36415; 97116 ×2; 97110; 97530; 97162; 80053; 85025; 85610; 83036; 73562; 76856; 76830; 73706; G0378 ×4; J1644 ×4; Q9967

== ENCOUNTER 2023-04-11 18:37 | Emergency (ER) | payer OTHER ==
[2023-04-11 19:07] VITALS: TEMP 98
--- NOTE | 2023-04-11 20:44 | ED ---
General Adult HPI - General Chief complaint: Extremity Problem,Nontraumatic Stated complaint: right knee pain Time Seen by Provider: 04/11/23 19:52 Source: patient, family, RN notes reviewed Mode of arrival: ambulatory Limitations: no limitations - History of Present Illness Initial comments: 57-year-old female presents to the emergency department chief complaint of leg cramping and right calf pain 1 week. She states that she recently has been experiencing upper respiratory symptoms including cough, congestion. She admits that she feels that her right leg is cramping. She states that the pain is worse with walking. She denies any notable swelling or redness to the leg. Past medical history includes hypertension, diabetes which she is not currently receiving treatment for. She denies chest pain, shortness of breath. - Related Data Home Medications Medication Instructions Recorded Confirmed Escitalopram [Lexapro] 10 mg PO DAILY 10/22/14 03/08/18 amLODIPine [Norvasc] 5 mg PO DAILY 06/24/16 03/08/18 Empagliflozin [Jardiance] 10 mg PO DAILY 03/08/18 03/08/18 Spironolactone 100 mg PO DAILY 03/08/18 03/08/18 sitaGLIPtin PHOS/metFORMIN HCL 1 tab PO BID 03/08/18 03/08/18 [Janumet 50-1,000 mg Tablet] Previous Rx's Medication Instructions Recorded Acetaminophen Tab [Tylenol] 650 mg PO Q6HR PRN tab 03/10/18 Ibuprofen [Motrin] 400 mg PO Q6HR PRN 3 Days #12 tab 03/10/18 Albuterol Inhaler [Ventolin Hfa 1 - 2 puff INHALATION Q6H PRN #1 04/11/23 Inhaler] each metFORMIN HCL [Glucophage] 500 mg PO BID #60 tab 04/11/23 Allergies Allergy/AdvReac Type Severity Reaction Status Date / Time latex AdvReac Rash/Hives Verified 03/08/18 08:37 Review of Systems ROS Statement: Those systems with pertinent positive or pertinent negative responses have been documented in the HPI. ROS Other: All systems not noted in ROS Statement are negative. Past Medical History Past Medical History: Asthma, Diabetes Mellitus, Hypertension Additional Past Medical History / Comment(s): hashimotos History of Any Multi-Drug Resistant Organisms: None Reported Past Surgical History: Orthopedic Surgery Additional Past Surgical History / Comment(s): ovarian cyst sx, D & C Past Anesthesia/Blood Transfusion Reactions: No Reported Reaction Past Psychological History: Anxiety Past Alcohol Use History: None Reported Past Drug Use History: None Reported - Past Family History Mother Family Medical History: Coronary Artery Disease (CAD), Diabetes Mellitus, Hypertension Father Family Medical History: Coronary Artery Disease (CAD), Diabetes Mellitus, Renal Disease Brother(s) Family Medical History: CVA/TIA General Exam Limitations: no limitations General appearance: alert, in no apparent distress Course Vital Signs 04/11/23 04/11/23 19:00 22:59 Temperature 98 F Pulse Rate 83 77 Respiratory 16 18 Rate Blood Pressure 181/82 151/106 O2 Sat by Pulse 97 96 Oximetry Medical Decision Making - Medical Decision Making Was pt. sent in by a medical professional or institution (, PA, COLORED LEATHER SETTER, urgent care, hospital, or senior care...) When possible be specific @ -No Did you speak to anyone other than the patient for history (EMS, parent, family, police, friend...)? What history was obtained from this source @ -No Did you review nursing and triage notes (agree or disagree)? Why? @ -I reviewed and agree with nursing and triage notes Were old charts reviewed (outside hosp., previous admission, EMS record, old EKG, old radiological studies, urgent care reports/EKG's, senior care records)? Report findings @ -No old charts were reviewed Differential Diagnosis (chest pain, altered mental status, abdominal pain women, abdominal pain men, vaginal bleeding, weakness, fever, dyspnea, syncope, headache, dizziness, GI bleed, back pain, seizure, CVA, palpatations, mental health, musculoskeletal)? @ -not applicable EKG interpreted by me (3pts min.). @ -None X-rays interpreted by me (1pt min.). @ -None done CT interpreted by me (1pt min.). @ -None done U/S interpreted by me (1pt. min.). @ -Ultrasound right lower extremity shows no evidence of DVT What testing was considered but not performed or refused? (CT, X-rays, U/S, labs)? Why? @ -None What meds were considered but not given or refused? Why? @ -None Did you discuss the management of the patient with other professionals (pro fessionals i.e. , PA, COLORED LEATHER SETTER, lab, RT, psych nurse, clinical social worker, fall internship, teacher, personal banking officer, special education case manager)? Give summary @ -No Was smoking cessation discussed for >3mins.? @ -No Was critical care preformed (if so, how long)? @ -No Were there social determinants of health that impacted care today? How? (Homelessness, low income, unemployed, alcoholism, drug addiction, transporta tion, low edu. Level, literacy, decrease access to med. care, [place] [facility], rehab)? @ -No Was there de-escalation of care discussed even if they declined (Discuss DNR or withdrawal of care, Hospice)? DNR status @ -No What co-morbidities impacted this encounter? (DM, HTN, Smoking, COPD, CAD, Cancer, CVA, ARF, Chemo, Hep., AIDS, mental health diagnosis, sleep apnea, morbid obesity)? @ -None Was patient admitted / discharged? Hospital course, mention meds given and route, prescriptions, significant lab abnormalities, going to OR and other pertinent info. @ - Discharged. 57-year-old female presents to the emergency department with chief complaint of right leg cramping. This has been going on for around 1 week. She does admit to upper respiratory-like symptoms. Patient does have past medical history of hypertension and diabetes which she has currently not receiving treatment for and she has not seen her PCP recently and does not have the medications at home. Ultrasound of the right lower extremity obtained which shows no evidence of DVT. This x-ray according to radiologist shows vascular prominence, correlate for volume overload, BNP 87. Patient does not have any significant signs of volume overload. Laboratory studies obtained which shows white count 7.9, hemoglobin 14.4; CMP shows sodium 134, potassium 4.1, creatinine 0.45; lactic acid 2.2 likely due to dehydration, glucose 310 which is likely baseline for the patient as she is in no diabetic and this is not currently taking any medications. Patient is tolerating oral intake advised her to increase her fluid intake. Covid, Influenza, RSV, strep negative. Patient advised on findings and will be discharged home. Patient stable at time of discharge. Case discussed with Dr. Romero Undiagnosed new problem with uncertain prognosis? @ -No Drug Therapy requiring intensive monitoring for toxicity (Heparin, Nitro, Insulin, Cardizem)? @ -No Were any procedures done? @ -No Diagnosis/symptom? @ -leg pain Acute, or Chronic, or Acute on Chronic? @ -acute Uncomplicated (without systemic symptoms) or Complicated (systemic symptoms)? @ -uncomplicated Side effects of treatment? @ -No Exacerbation, Progression, or Severe Exacerbation? @ -No Poses a threat to life or bodily function? How? (Chest pain, USA, AR, pneumonia, PE, COPD, DKA, ARF, appy, cholecystitis, CVA, Diverticulitis, Homicidal, Suicidal, threat to staff... and all critical care pts) @ -No - Lab Data Result diagrams: 04/11/23 21:00 04/11/23 21:00 Lab Results 04/11/23 04/11/23 04/11/23 Range/Units 21:00 21:00 21:00 WBC 7.9 (3.8-10.6) k/uL RBC 4.99 (3.80-5.40) m/uL Hgb 14.4 (11.4-16.0) gm/dL Hct 42.7 (34.0-46.0) % MCV 85.6 (80.0-100.0) fL MCH 28.9 (25.0-35.0) pg MCHC 33.8 (31.0-37.0) g/dL RDW 13.3 (11.5-15.5) % Plt Count 263 (150-450) k/uL MPV 8.3 Neutrophils % 49 % Lymphocytes % 41 % Monocytes % 6 % Eosinophils % 2 % Basophils % 1 % Neutrophils # 3.9 (1.3-7.7) k/uL Lymphocytes # 3.2 (1.0-4.8) k/uL Monocytes # 0.5 (0-1.0) k/uL Eosinophils # 0.2 (0-0.7) k/uL Basophils # 0.1 (0-0.2) k/uL Sodium 134 L (137-145) mmol/L Potassium 4.1 (3.5-5.1) mmol/L Chloride 104 (98-107) mmol/L Carbon Dioxide 21 L (22-30) mmol/L Anion Gap 9 mmol/L BUN 8 (7-17) mg/dL Creatinine 0.45 L (0.52-1.04) mg/dL Est GFR (CKD-EPI)AfAm >90 (>60 ml/min/1.73 sqM) Est GFR (CKD-EPI)NonAf >90 (>60 ml/min/1.73 sqM) Glucose 310 H (74-99) mg/dL Lactic Ac Sepsis Rflx Plasma Lactic Acid Dontae 2.2 H* (0.7-2.0) mmol/L Calcium 9.2 (8.4-10.2) mg/dL Total Bilirubin 0.5 (0.2-1.3) mg/dL AST 20 (14-36) U/L ALT 26 (4-34) U/L Alkaline Phosphatase 76 (38-126) U/L NT-Pro-B Natriuret Pep 87 pg/mL Total Protein 6.4 (6.3-8.2) g/dL Albumin 3.5 (3.5-5.0) g/dL Influenza Type A (PCR) (Not Detectd) Influenza Type B (PCR) (Not Detectd) RSV (PCR) (Not Detectd) SARS-CoV-2 (PCR) (Not Detectd) Group A Strep (PCR) (Not Detectd) 04/11/23 04/11/23 04/11/23 Range/Units 21:00 21:00 22:35 WBC (3.8-10.6) k/uL RBC (3.80-5.40) m/uL Hgb (11.4-16.0) gm/dL Hct (34.0-46.0) % MCV (80.0-100.0) fL MCH (25.0-35.0) pg MCHC (31.0-37.0) g/dL RDW (11.5-15.5) % Plt Count (150-450) k/uL MPV Neutrophils % % Lymphocytes % % Monocytes % % Eosinophils % % Basophils % % Neutrophils # (1.3-7.7) k/uL Lymphocytes # (1.0-4.8) k/uL Monocytes # (0-1.0) k/uL Eosinophils # (0-0.7) k/uL Basophils # (0-0.2) k/uL Sodium (137-145) mmol/L Potassium (3.5-5.1) mmol/L Chloride (98-107) mmol/L Carbon Dioxide (22-30) mmol/L Anion Gap mmol/L BUN (7-17) mg/dL Creatinine (0.52-1.04) mg/dL Est GFR (CKD-EPI)AfAm (>60 ml/min/1.73 sqM) Est GFR (CKD-EPI)NonAf (>60 ml/min/1.73 sqM) Glucose (74-99) mg/dL Lactic Ac Sepsis Rflx Y Plasma Lactic Acid Dontae (0.7-2.0) mmol/L Calcium (8.4-10.2) mg/dL Total Bilirubin (0.2-1.3) mg/dL AST (14-36) U/L ALT (4-34) U/L Alkaline Phosphatase (38-126) U/L NT-Pro-B Natriuret Pep pg/mL Total Protein (6.3-8.2) g/dL Albumin (3.5-5.0) g/dL Influenza Type A (PCR) Not Detected (Not Detectd) Influenza Type B (PCR) Not Detected (Not Detectd) RSV (PCR) Not Detected (Not Detectd) SARS-CoV-2 (PCR) Not Detected (Not Detectd) Group A Strep (PCR) NOT DETECTED (Not Detectd) Disposition Clinical Impression: Right leg pain, Viral URI Disposition: HOME SELF-CARE Condition: Stable Instructions (If sedation given, give patient instructions): Muscle Strain (ED), Upper Respiratory Infection (ED) Additional Instructions: Please follow up with your primary care provider. Return to the emergency department for new or worsening symptoms. Prescriptions: metFORMIN HCL [Glucophage] 500 mg PO BID #60 tab Albuterol Inhaler [Ventolin Hfa Inhaler] 1 - 2 puff INHALATION Q6H PRN #1 each PRN Reason: Shortness Of Breath Is patient prescribed a controlled substance at d/c from ED?: No Referrals: None,Stated [Primary Care Provider] - 1-2 days Forms: Area PCPs
--- NOTE | 2023-04-11 20:55 | US ---
EXAMINATION TYPE: US venous doppler duplex LE RT DATE OF EXAM: 04/11/2023 8:38 PM COMPARISON: NONE CLINICAL INDICATION: Female, 57 years old with history of swelling of leg increase pain no injury; Ri ght calf pain SIDE PERFORMED: Right TECHNIQUE: The lower extremity deep venous system is examined utilizing real time linear array sonog lv with graded compression, doppler sonography and color-flow sonography. VESSELS IMAGED: Common Femoral Vein Deep Femoral Vein Greater Saphenous Vein * Femoral Vein Popliteal Vein Small Saphenous Vein * Proximal Calf Veins (* superficial vessels) Right Leg: Appears negative for DVT IMPRESSION: 1. Right lower extremity ultrasound negative for deep venous thrombosis.
[2023-04-11 21:46] LABS: Basophils # (A) 0.1 k/uL (0-0.2); Basophils % (A) 1 %; Eosinophils # (A) 0.2 k/uL (0-0.7); Eosinophils % (A) 2 %; HCT 42.7 % (34.0-46.0); HGB 14.4 gm/dL (11.4-16.0); Lymphocytes # (A) 3.2 k/uL (1.0-4.8); Lymphocytes % (A) 41 %; MCH 28.9 pg (25.0-35.0); MCHC 33.8 g/dL (31.0-37.0); MCV 85.6 fL (80.0-100.0); Mean Platelet Volume 8.3; Monocytes # (A) 0.5 k/uL (0-1.0); Monocytes % (A) 6 %; Neutrophils # (A) 3.9 k/uL (1.3-7.7); Neutrophils % (A) 49 %; Platelet Count 263 k/uL (150-450); RBC 4.99 m/uL (3.80-5.40); RDW 13.3 % (11.5-15.5); WBC 7.9 k/uL (3.8-10.6)
[2023-04-11 22:00] LABS: ALT 26 U/L (4-34); AST 20 U/L (14-36); African American GFR (CKD) >90 (>60 ml/min/1.73 sqM); Albumin 3.5 g/dL (3.5-5.0); Alkaline Phosphatase 76 U/L (38-126); Anion Gap 9 mmol/L; Blood Urea Nitrogen 8 mg/dL (7-17); Calcium 9.2 mg/dL (8.4-10.2); Carbon Dioxide 21 mmol/L (22-30); Chloride 104 mmol/L (98-107); Glucose 310 mg/dL (74-99); Non-African American GFR(CKD) >90 (>60 ml/min/1.73 sqM); Potassium 4.1 mmol/L (3.5-5.1); Sodium 134 mmol/L (137-145); Total Bilirubin 0.5 mg/dL (0.2-1.3); Total Protein 6.4 g/dL (6.3-8.2)
--- NOTE | 2023-04-11 22:01 | XR ---
EXAMINATION TYPE: XR chest 2V DATE OF EXAM: 04/11/2023 COMPARISON: INDICATION: TECHNIQUE: Frontal and lateral views of the chest are obtained. FINDINGS: The heart size is normal. The pulmonary vasculature is prominent. The lungs are clear. IMPRESSION: 1. Vascular prominence. Correlate for volume overload.
[2023-04-11 22:08] LABS: NT-Pro-B-Type Natriuretic Pept 87 pg/mL
[2023-04-11 23:00] VITALS: BP 151/106; PULSE 77; RESP 18
== END 2023-04-11 23:09 | disposition home or self-care (01) ==
LOC: EC 18:37
DX: M25.561 Pain in right knee (principal); J06.9 Acute upper respiratory infection, unspecified; E11.9 Type 2 diabetes mellitus without complications; I10 Essential (primary) hypertension; J45.909 Unspecified asthma, uncomplicated; F41.9 Anxiety disorder, unspecified; Z20.822 Contact with and (suspected) exposure to COVID-19; Z79.84 Long term (current) use of oral hypoglycemic drugs; Z79.899 Other long term (current) drug therapy; Z91.040 Latex allergy status
CPT/HCPCS: 36415; 71046; 80053; 83605; 83880; 85025; 87636; 87651; 99284

== ENCOUNTER → 2024-09-26 | Outpatient (CLI) | payer OTHER ==
[~2024-09-26] MED LIST: REGADENOSON 0.4 MG/5 ML SYRINGE IV PRN
--- NOTE | 2024-09-26 13:49 | CA ---
Lexiscan Nuclear Stress Test Report Name: Jackie Nixon Exam Date: 09/26/2024 09:45 Exam Location: [facility] Ht (in): 70 Wt (lb): 312 BSA: 2.52 Ordering Phys: Jamel Garvin DO Referring Phys: Jamel Garvin DO Technologist: Wali Adhikari Age: 59 Gender: F : 1965 Procedure CPT: Indications: R06.00 DYSPNEA, UNSPECIFIED ICD-10 Codes: Patient History: Medications: Meds past 24 hrs: Pretest Chest Pain: STRESS TEST Lexiscan Protocol Exercise Duration (min:sec): 01:[address] Depressions (mm): Angina Score: Gamez Score: Resting HR (bpm): 69 Peak HR (bpm): 105 Resting BP (mmHg): 134 / 95 Peak BP (mmHg): 130 / 79 MPHR: 163 Target HR: 139 % MPHR: 64 METS: 1.0 Total Dose: Peak Dose: Atropine: Double Product: 21753 BP Response: Stress Termination: INFUSION COMPLETE Stress Symptoms: NO SYMPTOMS Stress Summary: ECG ANALYSIS Resting ECG: Stress ECG: CONCLUSIONS RESTING EKG: [Normal sinus rhythm, normal EKG] , Heart rate 73 BPM Patient recieved IV infusion of Lexiscan 0.4mg and at peak infusion STRESS EKG showed: [No significant ST-T wave changes diagnostic for ischemia by ST segment analysis] ARRYTHMIAS: [No ectopic rhythms or sustained arrythmias] CONCLUSION: 1. Normal hemodynamic and clinical response to Lexiscan infusion. 2. Non-ischemic EKG response to lexiscan infusion Please refer to the nuclear imaging portion of this stress test for complete interpretation of the study. Dr Shadi Doherty (Electronically Signed) Final Date: 26 September 2024 13:49
--- NOTE | 2024-09-26 16:06 | NM ---
EXAMINATION TYPE: NM stress lexiscan cardiolite DATE OF EXAM: 09/26/2024 COMPARISON: NONE CLINICAL INDICATION: Female, 59 years old with history of R06.00 DYSPNEA, UNSPECIFIED, TECHNIQUE: After the intravenous administration of 9.8 mCi Tc 99m Sestamibi - Cardiolite resting SPE CT images acquired 70 minutes post injection. At peak stress 25.4 mCi Tc 99m Sestamibi - Stress images obtained 41 minutes post injection The patient was stressed with 0.4mg Lexiscan. FINDINGS: There is diminished radiotracer on resting images along the inferior wall extending into th e cardiac apex. This has a more normal radiotracer distribution on the stress images. Findings could be related to stress-induced ischemic change. There may be some subtle dyskinesia of the distal inferior wall. Wall motion otherwise appears normal Ejection fraction is calculated to be 67 %. IMPRESSION: 1. Moderate stress-induced ischemic change along the inferior wall extending into the cardiac apex. 2. Mild dyskinesia of the inferior wall may be present. [facility], , 09/26/2024 4:04 PM
== END | disposition home or self-care (01) ==
LOC: RADNMMAIN 07:48
PROVIDERS: ATTEND Internal Medicine
DX: I24.89 Other forms of acute ischemic heart disease (principal); R06.00 Dyspnea, unspecified
CPT/HCPCS: 93017; 78452; A9500; J2785

== ENCOUNTER → 2024-10-06 | Outpatient (CLI) | payer OTHER ==
[2024-10-06 15:01] LABS: Basophils # (A) 0.06 X 10*3/uL (0.00-0.10); Basophils % (A) 0.8 %; Eosinophils # (A) 0.14 X 10*3/uL (0.04-0.35); Eosinophils % (A) 1.9 %; HCT 45.2 % (37.2-46.3); HGB 14.9 g/dL (12.0-15.0); Lymphocytes # (A) 2.48 X 10*3/uL (0.90-5.00); Lymphocytes % (A) 33.2 %; MCH 28.5 pg (27.0-32.0); MCV 86.6 FL (80.0-97.0); Mean Platelet Volume 10.2 FL (9.5-12.2); Monocytes # (A) 0.66 X 10*3/uL (0.20-1.00); Monocytes % (A) 8.8 %; NRBC Per 100 WBC 0 X 10*3/uL (0.00-0.01); Neutrophils # (A) 4.12 X 10*3/uL (1.80-7.70); Platelet Count 298 X 10*3/uL (140-440); RBC 5.22 X 10*6/uL (4.10-5.20); RDW 13.1 % (11.5-14.5); WBC 7.48 X 10*3/uL (4.50-10.00)
[2024-10-06 15:45] LABS: Chol/HDL Ratio 3.38 Ratio; LDL Cholesterol,Calculated 99.6 mg/dL (0.0-131.0); Magnesium 1.8 mg/dL (1.5-2.4)
[2024-10-06 15:46] LABS: ALT 20 U/L (8-44); AST 20 U/L (13-35); Albumin/Globulin Ratio 1.54 Ratio (1.60-3.17); Alkaline Phosphatase 53 U/L (41-126); BUN/Creat Ratio 16.67 Ratio (12.00-20.00); Calcium 9.3 mg/dL (8.7-10.3); Carbon Dioxide 23.5 mmol/L (21.6-31.8); Chloride 106 mmol/L (96-109); Globulin 2.6 g/dL (1.6-3.3); Glucose 134 mg/dL (70-110); Potassium 4.5 mmol/L (3.5-5.5); Sodium 142 mmol/L (135-145); Total Bilirubin 0.6 mg/dL (0.3-1.2); Total Protein 6.6 g/dL (6.2-8.2)
[2024-10-06 22:14] LABS: Microalbumin Creatinine Ratio <5 mg/g Cr (0-30)
== END | disposition home or self-care (01) ==
LOC: LABWHC1 08:05
PROVIDERS: ATTEND Internal Medicine
DX: Z00.00 Encounter for general adult medical examination without abnormal findings (principal); I10 Essential (primary) hypertension; E11.9 Type 2 diabetes mellitus without complications
CPT/HCPCS: 36415; 80053; 80061; 82043; 82570; 83735; 84443; 85025

== ENCOUNTER 2024-10-13 10:18 | Day surgery (SDC) | payer OTHER ==
[2024-10-11 11:43] VITALS: BMI 44.9
[~2024-10-13 10:18] MED LIST changes: +ALPRAZolam 0.25 MG TAB PO PRN; +ALPRAZolam 0.5 MG TAB PO PRN; +NITROGLYCERIN SL TABS 0.4 MG TAB SUBLINGUAL PRN; -REGADENOSON 0.4 MG/5 ML SYRINGE IV PRN
[2024-10-13 10:51] LABS: Glucose,Whole Blood 125 mg/dL (70-110)
[2024-10-13 10:53] VITALS: RESP 16; TEMP 97.8
[2024-10-13] MEDS: IV FLUID CONTINUATION 1,000 ML IV ONE (10:55)
[2024-10-13] MEDS: ASPIRIN 325 MG TAB PO STA (11:02)
[2024-10-13] MEDS: SODIUM CHLORIDE 0.9% 1,000 ML in EMPTY BAG 1 BAG IV SCH (11:03)
[2024-10-13] MEDS: MIDAZOLAM 2 MG/2 ML VIAL IVP ONE ×2 (12:54→13:06)
[2024-10-13] MEDS: HEPARIN SODIUM (1,000 UNIT/ML) 1,000 UNIT in SODIUM CHLORIDE 0.9% 1,000 ML IRRIGATION ONE (12:55)
[2024-10-13] MEDS: HEPARIN SODIUM,PORCINE (1 ML) 2,500 UNIT in SODIUM CHLORIDE 0.9% 250 ML IRRIGATION ONE (12:55)
[2024-10-13] MEDS: LIDOCAINE 1% INJ 10MG/ML (20 ML MDV) SQ ONE (12:56)
[2024-10-13] MEDS: VERAPAMIL SYRINGE (5 MG/10 ML) INTRAARTER ONE (12:58)
[2024-10-13] MEDS: HEPARIN SODIUM 1,000 UN/ML (10ML VL) IV ONE (12:59)
[2024-10-13] MEDS: MORPHINE SULFATE 4 MG/ML SYRINGE IVP ONE (13:05)
[2024-10-13] MEDS: IOPAMIDOL-370 100ML BTL INJ ONE (13:08)
[2024-10-13] MEDS ORDERED: RX INFO: IV CONTRAST WAS GIVEN 1 EACH MISC MISCELLANE PRN (13:09)
--- NOTE | 2024-10-13 13:12 | P.PCN ---
Date of Procedure: 10/13/24 Operative Findings: CARDIAC CATHETERIZATION PERFORMING PHYSICIAN: Jorge Lucio MD, RPVI PROCEDURE PERFORMED: 1. Selective right and left coronary angiogram 2. Left heart catheterization 3. Ultrasound-guided access of the right radial artery INDICATION: Symptomatic 59-year-old female patient with abnormal stress COMPLICATION: None APPROACH: Right radial artery LEVEL OF SEDATION: Moderate with a sedation length of [] minutes PROCEDURE DESCRIPTION: After obtaining an informed consent, the patient was brought to cardiac prestressed concrete laborer. Local anesthesia was performed using lidocaine subcutaneously. The right radial artery was cannulated using Seldinger technique, under ultrasound guidance, the guidewire passed easily, following that we advanced a 5-Nepali sheath dilator assembly, the wire and dilator were removed and sheath was flushed. Following that, 2 mg of verapamil along with 5000 unit heparin were given. Selective right and left coronary angiogram using a 5-Nepali JR4 and JL 3.5 catheters. Following that we did left heart catheterization using 5-Nepali pigtail catheter. The procedure was completed there was no complication. 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 No evidence of high-grade stenosis was identified 2. Myocardial bridging involving the medial POSTPROCEDURE MANAGEMENT: Medical treatment
[2024-10-13 16:55] VITALS: BP 96/54; PULSE 65
== END 2024-10-13 17:01 | disposition home or self-care (01) ==
LOC: CATHCVL 10:18
PROVIDERS: ATTEND Internal Medicine Interventional Cardiology
DX: R94.39 Abnormal result of other cardiovascular function study (principal); Q24.5 Malformation of coronary vessels; I10 Essential (primary) hypertension; E11.9 Type 2 diabetes mellitus without complications; E78.5 Hyperlipidemia, unspecified; E66.9 Obesity, unspecified; Z68.41 Body mass index [BMI] 40.0-44.9, adult; Z79.82 Long term (current) use of aspirin; Z79.85 Long-term (current) use of injectable non-insulin antidiabetic drugs; Z79.899 Other long term (current) drug therapy; Z82.49 Family history of ischemic heart disease and other diseases of the circulatory system
CPT/HCPCS: 93458; C1894; J2250; J2270; J1644 ×2; J2003; Q9967